=== PATIENT | male | born 1965 | race Caucasian/White ===

== ENCOUNTER 2019-03-06 18:08 | Emergency (ER) | payer SELFPAY ==
[2019-03-06] MEDS ORDERED: PREDNISONE20 MG PO (18:55)
[2019-03-06] MEDS ORDERED: IBUPROFEN800 MG PO (18:55)
[2019-03-06 19:32] VITALS: BP 142/88
== END 2019-03-06 19:33 | disposition home or self-care (01) ==
LOC: D.ER 18:08
DX: K08.89 Other specified disorders of teeth and supporting structures (principal)